=== PATIENT | male | born 1995 | race Caucasian/White ===

== ENCOUNTER 2021-09-28 21:00 | Emergency (ER) | payer OTHER ==
[2021-09-28] MEDS ORDERED: Amoxicillin/Clavulanate K 875-125 MG Tab PO ONE (22:32)
[2021-09-28 22:44] LABS: CORONAVIRUS COVID-19 NAA NEGATIVE (NEGATIVE)
== END 2021-09-28 22:50 | disposition home or self-care (01) ==
LOC: JD.ED 21:00
DX: H66.011 Acute suppurative otitis media with spontaneous rupture of ear drum, right ear (principal); Z72.0 Tobacco use; Z20.822 Contact with and (suspected) exposure to COVID-19
CPT/HCPCS: 0241U; 99283; A9270